=== PATIENT | female | born 1985 | race Caucasian/White ===

== ENCOUNTER → 2020-03-30 10:14 | Outpatient (CLI) | payer BC, SELFPAY ==
[2020-03-30 12:50] LABS: Appearance Urine UA CLEAR; Bilirubin Urine UA NEGATIVE (NEGATIVE); Color Urine UA YELLOW; Glucose Urine UA NEGATIVE (Negative); Ketones Urine UA NEGATIVE (NEGATIVE); Leukocyte Esterase Urine UA NEGATIVE (NEGATIVE); Nitrite Urine UA NEGATIVE (Negative); Occult Blood Urine UA TRACE-LYSED (Negative); Protein Urine UA NEGATIVE (Negative); Urobilinogen Urine UA 0.2 E.U./dL (0.2)
[2020-03-30 12:51] LABS: Add Manual Diff / Slide Review NO; Basophils Absolute Auto 0 /uL (0-100); Basophils Percent Auto 0.4 % (0-2); Eosinophils Absolute Auto 100 /uL (0-450); Eosinophils Percent Auto 1.6 % (2-4); Hematocrit 35.3 % (36-46); Hemoglobin 12.3 g/dL (12.0-16.0); Lymphocytes Absolute Auto 1500 /uL (1100-4500); Lymphocytes Percent Auto 20.4 % (25-40); Mean Corpuscular Hemoglobin 30.7 PG (26-34); Mean Corpuscular Volume 87.9 fL (80-100); Monocytes Absolute Auto 400 /uL (0-900); Monocytes Percent Auto 5.5 % (3-14); Neutrophils Absolute Auto 5300 /uL (1500-7000); Neutrophils Percent Auto 72.1 % (50-75); Platelet Count 287 X10^3/uL (150-400); Red Blood Cell Count 4.02 X10^6/uL (4.0-5.2); Red Cell Distribution Width 14.1 % (11.6-14.8); White Blood Cell Count 7.3 X10^3/uL (4.5-11.0)
[2020-03-30 13:40] LABS: GTT (PREG) 1 Hour PP 50gm Dose 109 mg/dL (76-139)
[2020-03-31 15:34] LABS: RPR Screen Non Reactive (Non Reactive)
[2020-03-31 15:36] LABS: Varicella IgG Antibody 594 index (Immune >165)
[2020-04-01 16:02] LABS: Hepatitis B Surface Antigen NEGATIVE s/c (NEGATIVE); Rubella Antibody IgG 93.5 IU/mL (>15)
[2020-04-01 16:17] LABS: HIV 1 & 2 Ab/Ag 4th Gen Combo NEGATIVE (NEGATIVE); Hep C Virus Ab w/Reflex Quant NEGATIVE s/c (NEGATIVE)
== END ==
PROVIDERS: PCP Physician Assistant Medical; Referring Provider Family Medicine; Visit Provider Family Medicine
DX: Z34.01 Encounter for supervision of normal first pregnancy, first trimester (principal); E03.9 Hypothyroidism, unspecified; E66.9 Obesity, unspecified; Z83.3 Family history of diabetes mellitus; Z3A.10 10 weeks gestation of pregnancy
CPT/HCPCS: 80055; 81003; 82950; 84443; 86787; 86803; 86850; 86900; 86901; 87086; 87389

== ENCOUNTER → 2020-04-27 10:03 | Outpatient (CLI) | payer BC, SELFPAY ==
[2020-04-27 11:18] LABS: Thyroid Stimulating Hormone 5.56 uIU/mL (0.47-4.68)
[2020-04-29 20:08] LABS: Calc Gestational Age Ultrasound (.); Estriol, Free 1.75 ng/mL (.); Inhibin A, Dimeric 215.61 pg/mL (.); Inhibin A, MoM See interpretation. (.); Maternal Ethnicity Caucasian (.); Maternal Weight 230 lbs (.); Number of Fetuses No (.); OSBR Risk 1 IN 10000 (.); Results Report (.); Test Results See interpretation. (.); hCG, MoM See interpretation. (.); hCG, Serum 31481 mIU/mL (.)
== END ==
PROVIDERS: PCP Physician Assistant Medical; Referring Provider Family Medicine; Visit Provider Family Medicine
DX: Z34.90 Encounter for supervision of normal pregnancy, unspecified, unspecified trimester (principal); E03.9 Hypothyroidism, unspecified; Z3A.18 18 weeks gestation of pregnancy
CPT/HCPCS: 36415; 82105; 82677; 84443; 84702; 86336

== ENCOUNTER → 2020-05-25 10:39 | Outpatient (CLI) | payer BC, SELFPAY ==
--- NOTE | 2020-05-25 10:41 | DI.US.S_ITS ---
PROCEDURE: US OB >= 14 WEEKS FETUS INDICATIONS: ANATOMY SCAN OUTSIDE/PRIOR DATING DATA: Last menstrual period (LMP): 12/23/2019 LMP-based estimated date of delivery (AVELINA): 09/28/2020 First dating scan (date and location): 05/25/2020 Estimated date of delivery (AVELINA) from first dating scan: 09/28/2020 TECHNIQUE: Real-time scanning was performed of the fetus, with image documentation and biometric measurements. Endovaginal scanning: Not performed. COMPARISON: None. FINDINGS: General: A single living intrauterine gestation is present. Presentation: Vertex. Placenta: Placental position is posterior, without previa. Amniotic fluid index: 11.5 cm, normal range is 5-24 cm. heart rate: 153 beats per minute. Maternal cervical canal: 4.1 cm long. Normal lower limit is 2.5 cm. biometrics: Biparietal diameter: 5.28 cm, 22 weeks 0 days. Head circumference: 19.45 cm, 21 weeks 5 days Abdominal circumference: 16.82 cm, 21 weeks 6 days Femur length: 3.90 cm, 22 weeks 4 days Estimated gestational age from initial scan: not applicable. Composite gestational age from present scan: 22 weeks 0 days Estimated weight and percentile: 475 grams, 48th percentile. Measurement variability for biometric dating: +/- 7 days from 14 weeks to 15 weeks 6 days gestation, +/- 10 days from 16 weeks to 21 weeks 6 days gestation, +/- 2 weeks from 22 weeks to 27 weeks 6 days gestation, +/- 3 weeks for 28 weeks gestation or later. weight reference: 4500 g or EFW >90/95% is considered macrosomia or large for gestational age. EFW <10% is small for gestational age. EFW 5% or less is considered intra-uterine growth restriction. Anatomic survey: Neuro: Ventricles are non-dilated at less than 10 mm. Cisterna magna is normal at 3-11 mm. Cerebellum is normal in size and morphology. Nuchal skin fold: Normal at less than 6 mm between 14-21 weeks gestational age. Face: Nose and lips, facial profile are normal. Spine: No evidence for spina bifida. Heart: 4-chambered heart is present, with normal ventricular outflow tracts. Diaphragm: Diaphragm is intact. Stomach: Left-sided stomach is present. Kidneys: No hydronephrosis. Normal is less than 5 mm in 2nd trimester, less than 7 mm in 3rd trimester. Cord: 3-vessel cord has orthotopic insertion. Bladder: Normal in size. Extremities: All 4 extremities identified. IMPRESSION: 1. Spann living intrauterine at 22 weeks 0 days based on today's ultrasound. 2. Normal placenta and amniotic fluid. 3. Normal and complete anatomic survey. Dictated by: Rohan Kauffman M.D. on 05/25/2020 at 14:14 Approved by: Rohan Kauffman M.D. on 05/25/2020 at 14:22
== END ==
PROVIDERS: PCP Physician Assistant Medical; Referring Provider Family Medicine; Visit Provider Family Medicine
DX: Z34.92 Encounter for supervision of normal pregnancy, unspecified, second trimester (principal); Z3A.22 22 weeks gestation of pregnancy
CPT/HCPCS: 76811

== ENCOUNTER → 2020-06-16 14:58 | Outpatient (CLI) | payer BC, SELFPAY ==
[2020-06-16 17:30] LABS: Thyroid Stimulating Hormone 2.28 uIU/mL (0.47-4.68)
== END ==
PROVIDERS: PCP Physician Assistant Medical; Referring Provider Family Medicine; Visit Provider Family Medicine
DX: E03.9 Hypothyroidism, unspecified (principal)
CPT/HCPCS: 36415; 84443

== ENCOUNTER → 2020-07-06 10:20 | Outpatient (CLI) | payer BC, SELFPAY ==
[2020-07-06 12:33] LABS: Add Manual Diff / Slide Review NO; Basophils Absolute Auto 0 /uL (0-100); Basophils Percent Auto 0.4 % (0-2); Eosinophils Absolute Auto 100 /uL (0-450); Eosinophils Percent Auto 1.7 % (2-4); Hematocrit 32.7 % (36-46); Hemoglobin 11.1 g/dL (12.0-16.0); Lymphocytes Absolute Auto 1600 /uL (1100-4500); Lymphocytes Percent Auto 19.1 % (25-40); Mean Corpuscular HGB Conc 33.9 % (30-36); Mean Corpuscular Volume 88.5 fL (80-100); Monocytes Absolute Auto 500 /uL (0-900); Monocytes Percent Auto 6.4 % (3-14); Neutrophils Absolute Auto 6200 /uL (1500-7000); Neutrophils Percent Auto 72.4 % (50-75); Platelet Count 316 X10^3/uL (150-400); Red Blood Cell Count 3.69 X10^6/uL (4.0-5.2); Red Cell Distribution Width 12.9 % (11.6-14.8); White Blood Cell Count 8.5 X10^3/uL (4.5-11.0)
[2020-07-06 12:35] LABS: GTT (PREG) 1 Hour PP 50gm Dose 110 mg/dL (76-139)
== END ==
PROVIDERS: PCP Physician Assistant Medical; Referring Provider Family Medicine; Visit Provider Family Medicine
DX: Z34.90 Encounter for supervision of normal pregnancy, unspecified, unspecified trimester (principal); Z3A.26 26 weeks gestation of pregnancy
CPT/HCPCS: 36415; 82950; 85025; 86850

== ENCOUNTER → 2020-08-31 09:48 | Outpatient (CLI) | payer BC, SELFPAY ==
[2020-09-01 11:58] LABS: Strep Grp B PCR POS for Grp B Strep
== END ==
PROVIDERS: PCP Family Medicine; Visit Provider Family Medicine
DX: Z34.90 Encounter for supervision of normal pregnancy, unspecified, unspecified trimester (principal); Z3A.36 36 weeks gestation of pregnancy
CPT/HCPCS: 87186; 87653

== ENCOUNTER → 2020-09-01 10:06 | Outpatient (CLI) | payer BC, SELFPAY ==
[2020-09-01 12:03] LABS: Thyroid Stimulating Hormone 0.372 uIU/mL (0.47-4.68)
== END ==
PROVIDERS: PCP Family Medicine; Referring Provider Family Medicine; Visit Provider Family Medicine
DX: E03.9 Hypothyroidism, unspecified (principal)
CPT/HCPCS: 36415; 84443

== ENCOUNTER 2020-09-23 18:40 | Inpatient (IN) | payer BC, SELFPAY ==
[2020-09-23 19:56] LABS: COVID19 -Nasal RAPID Negative (Negative)
[2020-09-23 20:54] LABS: Add Manual Diff / Slide Review NO; Basophils Absolute Auto 100 /uL (0-100); Basophils Percent Auto 0.7 % (0-2); Eosinophils Absolute Auto 100 /uL (0-450); Eosinophils Percent Auto 0.9 % (2-4); Hematocrit 34.6 % (36-46); Hemoglobin 11.6 g/dL (12.0-16.0); Lymphocytes Absolute Auto 2400 /uL (1100-4500); Lymphocytes Percent Auto 21.1 % (25-40); Mean Corpuscular HGB Conc 33.5 % (30-36); Mean Corpuscular Hemoglobin 28.9 PG (26-34); Mean Corpuscular Volume 86.4 fL (80-100); Monocytes Absolute Auto 600 /uL (0-900); Monocytes Percent Auto 5.5 % (3-14); Neutrophils Absolute Auto 8100 /uL (1500-7000); Neutrophils Percent Auto 71.8 % (50-75); Platelet Count 298 X10^3/uL (150-400); Red Cell Distribution Width 14.5 % (11.6-14.8); White Blood Cell Count 11.3 X10^3/uL (4.5-11.0)
[2020-09-23] MEDS: LACTATED RINGERS 1,000 ML 100 ML IV (21:05)
[2020-09-23] MEDS: VANCOMYCIN 2,000 MG/400 ML PIGGYBACK 200 MG IV (21:05)
[2020-09-23 21:30] VITALS: BP 126/79
[2020-09-23] MEDS: diphenhydrAMINE 50 MG/ML VIAL 25 MG IV (22:45)
[2020-09-24] MEDS: CALCIUM CARBONATE 500 MG TAB 1000 MG PO (00:24)
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
--- NOTE | 2020-09-24 07:17 | PM.OBPRVD ---
Labor & Delivery Delivery date: 09/24/20 Intrapartal events: None Estimated blood loss (mL): 200 Anesthesia type: Other (Nitrous) Complications: None Narrative: PROCEDURE: at 39w2d presented with PROM and was admitted to Labor and Delivery. The patient progressed through the 1st stage over 2 hours. Pain was controlled with Nitrous oxide. The patient progressed through the 2nd stage over [id number] and delivered a viable male infant with APGARs 8/9 at 6:55 via without complications. There was no nuchal cord. The cord was clamped and cut after it stopped pulsating. The perineum and vagina were inspected with very small 1st degree perineal laceration that was hemostatic and not repaired. PREPROCEDURE DIAGNOSIS: Intrauterine at 39w2d GBS positive Rh negative, s/p Rhogam Hypothyroidism POSTPROCEDURE DIAGNOSIS: Intrauterine at 39w3d, delivered Same as preprocedure PROCEDURE: Spontaneous vaginal delivery INDUCTION: No LABOR AUGMENTATION: None ROM APPEARANCE: Clear BABY A DELIVERY TIME: 6:55 BABY A OUTCOME: Viable BABY A SEX: Male BABY A WEIGHT: 7lb2.2oz BABY A PRESENTATION: Vertex BABY A POSITION: ERIN BABY A NUCHAL CORD: None BABY A # CORD VESSELS: 3 BABY A CORD GASES OBTAINED: No PLACENTA DELIVERY TIME: 7:03 PLACENTAL DELIVERY TYPE: Spontaneous PLACENTA APPEARANCE: Intact Baby 1: Infant gender: Male score (1 min): 8 score (5 min): 9 Plan for aftercare: Normal care Continue Levothyroxine Cord blood sent due to Rh status
[2020-09-24] MEDS: IBUPROFEN 600 MG TABLET PO ×2 (09:03→15:59)
[2020-09-24] MEDS: LEVOTHYROXINE 125 MCG TABLET PO (09:04)
[2020-09-24] MEDS: DERMOPLAST SPRAY 20% 60 ML 1 SPRAY TOP (09:04)
[2020-09-24] MEDS: LANOLIN OINT 7 GM 1 APPLIC TOP (15:59)
[2020-09-25] MEDS: LEVOTHYROXINE 125 MCG TABLET PO (07:43)
[2020-09-25] MEDS: IBUPROFEN 600 MG TABLET PO (07:43)
[2020-09-25] MEDS: DOCUSATE 100 MG CAPSULE PO (07:43)
[2020-09-25] MEDS: PRENATAL VIT,CALC/IRON/FOLIC 1 TABLET 1 TAB PO (07:43)
--- NOTE | 2020-09-25 09:04 | PM.OBDS.1 ---
Discharge Providers Provider Date of admission: 09/23/20 18:40 Discharge Date: 09/25/20 Primary care physician: Mary Morales MD Consults: 09/25/20 07:22 Consult to Hop Separator Routine Comment: Discharge provider: DO Leslee Walker Hospital Course Date Patient Seen: 09/25/20 Time Patient Seen: 09:00 Procedures: Spontaneous vaginal delivery Hospital Course: Patient is a 35-year-old G2 now P1 after uncomplicated spontaneous vaginal delivery of a vigorous male on 09/24/20. course uncomplicated as well. Patient was ambulating, voiding and passing flatus. Vaginal bleeding was reportedly light. Pain controlled with ibuprofen only. Breast-feeding going well after frenotomy in infant. Advised patient to call for fevers, severe pain or bleeding through more than a pad an hour. She will follow-up with Dr. Morales in 6 weeks. Peripartum Data Infant Delivery Method: Natural Vaginal complications: none [place] 1: Gender: Male Disposition of : home Discharge Diagnosis (1) Spontaneous vaginal delivery: Status: Acute (2) 39 weeks gestation of : Status: Acute Status at Discharge Cognitive/behavioral status at discharge: at baseline, oriented Functional status at discharge: independent ambulation Overall status at discharge: patient is progressing back to baseline Time Spent with Patient Time attestation: Total time spent providing and/or coordinating discharge services: Time spent: Less than 30 minutes Objective Labs Result Diagrams: 09/23/20 20:40 Labs: Laboratory Results - last 24 hr 09/25/20 06:55 Maternal Bleed Negative Exam Vital Signs (past 8 hours): Temperature 98.2? blood pressure 129/85 heart rate 95 respirations 20 Narrative Exam Narrative: General: Awake and alert, no acute distress. HEENT: NCAT, EOMI, moist oral mucosa CV: Regular rate and rhythm, no murmurs, rubs or gallops Lungs: CTAB, no wheezes, rales, or rhonchi Abdomen: Soft, nontender; bowel tones active; uterus firm 1 cm below umbilicus Extremities: Warm, no edema Discharge Plan Discharge Plan Patient Disposition: Home Discharge orders & Medications Prescriptions: New docusate sodium [DOK] 100 mg Capsule 100 mg PO DAILY Qty: 30 RF: 0 ibuprofen 600 mg Tablet 600 mg PO Q6HR PRN (Reason: Pain, Mild (1-3)) Qty: 30 RF: 0 Ayh-W-Eyxonj Cream 1 applic topical PRN PRN (Reason: Tenderness) Qty: 1 RF: 0 Continued levothyroxine 125 mcg capsule 125 mcg PO DAILY Qty: 30 RF: 1 prenat.vits,tammie,hgw-vxed-rkgwk Tablet 1 tab PO DAILY RF: 0 Follow up/Referrals: Mary Morales MD [Primary Care Provider] - (please f/u w/ Dr. Morales on @ 1:30pm for your appt. appt: @ 12pm ([facility])) Visit Report/Discharge Packet Stand Alone Forms: Discharge: Care Visit Report Forms: Patient Portal/API, Stroke Signs & Symptoms Discharge Data Primary Care Provider: Mary Morales
[2020-09-25] MEDS: RHO(D) IMMUNE GLOBULIN 1,500 UNIT SYRINGE 1500 UNIT IM (11:06)
[2020-09-25 11:10] VITALS: BP 126/79; PULSE 95; RESP 20; TEMP 36.8
== END 2020-09-25 11:11 | disposition home or self-care (01) | DRG 807 ==
PROVIDERS: Admitting Provider Family Medicine; PCP Family Medicine; Referring Provider Specialist; Visit Provider Family Medicine
DX: O42.02 Full-term premature rupture of membranes, onset of labor within 24 hours of rupture (principal); Z37.0 Single live birth; Z3A.39 39 weeks gestation of pregnancy; O99.824 Streptococcus B carrier state complicating childbirth; O99.284 Endocrine, nutritional and metabolic diseases complicating childbirth; E03.9 Hypothyroidism, unspecified; O26.893 Other specified pregnancy related conditions, third trimester; Z67.21 Type B blood, Rh negative; Z88.0 Allergy status to penicillin; Z11.59 Encounter for screening for other viral diseases
CPT/HCPCS: 36415; 59050; 59400; 84112; 85025; 85461; 86850; 86900; 86901; 87635; G0379; J1200; J2790

== ENCOUNTER → 2020-11-12 07:57 | Outpatient (CLI) | payer BC, SELFPAY ==
--- NOTE | 2020-11-12 07:58 | DI.US.S_ITS ---
PROCEDURE: US ABDOMEN LIMITED INDICATIONS: RUQ PAIN TECHNIQUE: Real-time scanning was performed of the abdominal and retroperitoneal organs, with image documentation. COMPARISON: None. FINDINGS: Liver: Liver is normal in size and homogeneous in echotexture. Gallbladder: Numerous stones are seen in dependent portion of gallbladder lumen. No gallbladder wall thickening. No definite pericholecystic fluid. Positive sonographic Srivastava sign was noted during the study. Biliary ducts: Intrahepatic bile ducts are non-dilated. Extrahepatic bile duct caliber measures 4.6 mm. Normal is 6-7 mm or less in diameter, or 10 mm or less post-cholecystectomy. Pancreas: Visualized portions of the pancreas are sonographically normal. IMPRESSION: 1. Cholelithiasis with positive sonographic Srivastava sign during the study concerning for early acute cholecystitis. No significant gallbladder wall thickening or pericholecystic fluid is seen on the current study. 2. No biliary ductal dilatation. Dictated by: Shade Patterson M.D. on 11/12/2020 at 9:41 Approved by: Shade Patterson M.D. on 11/12/2020 at 9:42
[2020-11-12 10:07] LABS: Thyroid Stimulating Hormone 3.36 uIU/mL (0.47-4.68)
== END ==
PROVIDERS: PCP Family Medicine; Referring Provider Family Medicine; Visit Provider Family Medicine
DX: R10.11 Right upper quadrant pain (principal); E03.9 Hypothyroidism, unspecified; K80.20 Calculus of gallbladder without cholecystitis without obstruction
CPT/HCPCS: 36415; 76705; 84443

== ENCOUNTER → 2020-12-06 09:31 | Outpatient (CLI) | payer BC, SELFPAY ==
[2020-12-06 11:52] LABS: COVID19 -Nasal RAPID Negative (Negative)
== END ==
PROVIDERS: PCP Family Medicine; Visit Provider Surgery
DX: Z01.812 Encounter for preprocedural laboratory examination (principal); Z20.822 Contact with and (suspected) exposure to COVID-19
CPT/HCPCS: 87635; C9803

== ENCOUNTER 2020-12-07 08:06 | Day surgery (SDC) | payer BC, SELFPAY ==
[2020-12-07] VITALS (12 sets, daily range): BP systolic 102–124; BP diastolic 57–89; PULSE 72–99; RESP 12–18; TEMP 36.2–37.1; O2SAT 95–100; BMI 34.3
--- NOTE | 2020-12-07 | PATH_ITS ---
[facility] Accession Number: [id number] . 01 Material submitted: . gallbladder - GALLBLADDER . 01 Clinical history: . LAP GALEN . 02 Diagnosis: Gallbladder, Cholecystectomy: Chronic cholecystitis with cholelithiasis and cholesterolosis. Negative for dysplasia and malignancy. MRV 12/09/2020 1021 Local . 02 Electronically signed: . Oralia Simons MD, Pathologist NPI- [id number] . 01 Gross description: . The specimen is received in formalin, labeled gallbladder and consists of a 7.0 x 3.0 x 2.6 cm intact gallbladder with a 0.2 cm in diameter cystic duct. The serosa is mckenna-pink to mckenna-green and smooth with focal fibrinous adhesions. Opening reveals green viscous bile with multiple mckenna-green bosselated choleliths ranging from 0.1 to 0.6 cm and measuring 5.0 x 2.0 x 1.5 cm in aggregate. The mucosa is mckenna-green and velvety with cholesterolosis, and the wall thickness measures 0.2 cm. Hand Tennis Ball Coverer sections are submitted to include the en face cystic duct margin (blue) in cassette A1. ([id number]) /MRV 12/08/2020 0947 Local . 02 Pathologist provided ICD-10: K80.50 . 02 CPT . 858600 Performed at: 01 [facility] [address], [place], [place] [id number] MD Seven Haque MD Phone: [phone] Performed at: 02 [facility] [address] [place], [place] [id number] MD Oralia Simons MD Phone: [phone]
--- NOTE | 2020-12-07 08:18 | PM.PREOP ---
Pre-operative Note Interval Note History & Physical reviewed/Exam performed by Physician: Yes Changes to H&P: No
[2020-12-07] MEDS: LACTATED RINGERS 1,000 ML 100 ML IV (08:55)
[2020-12-07] MEDS: CLINDAMYCIN 900 MG/50 ML PIGGYBACK 50 MG IV (09:01)
--- NOTE | 2020-12-07 09:22 | SUR.OPER ---
Supine on padded OR bed, head on pillow, safety belt at thigh, left arm padded and tucked at side. Right arm secured on padded arm oard <90 degrees abduction. Legs uncrossed. Padded footboard in place. Tape over blanket to secure lower legs.
[2020-12-07] MEDS: BUPIVACAINE 0.25% (PF) VIAL 30 ML INJ (09:31)
--- NOTE | 2020-12-07 10:46 | PM.OP.1 ---
Operative Date/Time/Diagnoses Date of procedure: 12/07/20 Time of procedure: 10:47 Pre-op diagnosis: cholecystitis Post-op diagnosis: same Procedure & Clinicians Procedure: laparoscopic cholecystectomy Same procedure as scheduled: Yes Indications: 35F recently post with biliary colic here for elective cholecystectomy Surgeon: Roverto Parish Anesthesia Type: General Operative Notes Findings: Chronic cholecystitis Specimen(s): other (gallbladder) Estimated Blood Loss (mL): 50 Procedure in detail: The patient was placed supine on the table and bilateral lower extremity compression devices were applied. Anesthesia was induced they were intubated with an endotracheal tube and received 2g of Ancef. A time-out was performed. They were prepped and draped in sterile fashion. An infraumbilical incision was made, the umbilical stalk was elevated and the fascia was sharply incised entering the abdomen atraumatically. A blunt tip 12mm balloon trocar was then inserted, pneumoperitoneum was established and inspection of the abdomen demonstrated no evidence of injury. They were placed head up and right side up and then a 11 mm port was placed high in the epigastrium and two 5mm in the right upper quadrant. The omentum was densely adherent to the gallbladderand was carefully taken down consistent with chronic cholecystitis. The gallbladder was grasped by the fundus and retracted over the liver and retracted laterally by the infundibulum. Using electrocautery the lateral plane between the gallbladder and the liver was opened towards the fundus. The gallbladder was then retracted laterally and the medial plane was developed in the same manner. With the gallbladder mobilized the bottom of the cystic plate was visualized. The hepatocystic triangle was meticulosly skeletonized using hook electrocautery of all fat and fibrous tissue from both the front and the back. Only two structures were then clearly seen entering the gallbladder the cystic duct and the cystic artery. With the critical view of safety fully established the cystic duct was clipped twice proximally and once distally using the 10 mm clip applied under direct visualization and then sharply divided. The cystic artery was divided in the same fashion. The gallbladder was removed from the liver bed using electro cautery. The liver bed was then inspected for hemostasis and this was achieved. The abdomen was irrigated with sterile saline and inspection was made that showed the clips in good position. The specimen was removed using Endo-Catch. The abdomen was desufflated. The umbilical fascia was closed with 0 Vicryl in a [id number] fashion under direct visualization. Skin incisions were irrigated and closed with 4-0 Monocryl. 30 ml of 0.25% bupivacaine was infiltrated into the subcutaneous tissue of the incisions. The wounds were sealed with Dermabond. Patient emerged from anesthesia was extubated and transferred to recovery in stable condition. The sponge and instrument count at the end of the operation was correct. Complications: none Post-operative Condition: stable Disposition: same day surgery
[2020-12-07] MEDS: ONDANSETRON 4 MG/2 ML INJ IV (10:48)
[2020-12-07] MEDS: OXYCODONE/ACETAMINOPHEN 5/325 TABLET 1 TAB PO ×2 (10:53→11:19)
[2020-12-07] MEDS: HYDROMORPHONE 2 MG INJ IV (10:57)
[2020-12-07] MEDS: METOCLOPRAMIDE 10 MG/2 ML INJ IV (11:06)
--- NOTE | 2020-12-07 11:37 | SUR.PHASEII ---
Pt's Dad called, updated him with pt's condition. Pt still nauseated- comes and goes, IV fluids resumed, call light at bedside.
[2020-12-07] MEDS: LACTATED RINGERS 1,000 ML 42 ML IV (11:45)
--- NOTE | 2020-12-07 13:27 | SUR.PHASEII ---
Late entry: Pt stated she was ready to go. Assisted pt to dress. Abdomen with puncture sites c/d/i. Pt attempted to stand up, became nauseated and vomited approximately 100mls yellow/green liquid. Pt still wanting to go home. Pt escorted from unit let in stable condition.
== END 2020-12-07 12:30 | disposition home or self-care (01) ==
PROVIDERS: PCP Family Medicine; Referring Provider Family Medicine; Visit Provider Surgery
PROC: 0FT44ZZ Resection of Gallbladder, Percutaneous Endoscopic Approach (ICD-10-PCS; CPT 47562; principal; 2020-12-07 09:15)
DX: K80.10 Calculus of gallbladder with chronic cholecystitis without obstruction (principal); E03.9 Hypothyroidism, unspecified; J45.20 Mild intermittent asthma, uncomplicated; E66.9 Obesity, unspecified; Z68.35 Body mass index [BMI] 35.0-35.9, adult
CPT/HCPCS: 47562; 81025; J1100; J1170; J1885; J2250; J2405; J2704; J2765; J3010

== ENCOUNTER → 2020-12-21 13:02 | Outpatient (ROUT) | payer BC, SELFPAY ==
[2020-12-21 14:44] LABS: Urine N gonorrhoeae NOT DETECTED
[2020-12-21 14:46] LABS: Urine Chlamydia NOT DETECTED
== END ==
PROVIDERS: PCP Family Medicine; Visit Provider Family Medicine
DX: Z11.3 Encounter for screening for infections with a predominantly sexual mode of transmission (principal)
CPT/HCPCS: 87491; 87591

== ENCOUNTER → 2021-12-13 10:11 | Outpatient (CLI) | payer BC, SELFPAY ==
[2021-12-13 12:18] LABS: Add Manual Diff / Slide Review NO; Basophils Absolute Auto 100 /uL (0-100); Basophils Percent Auto 0.9 % (0-2); Eosinophils Absolute Auto 100 /uL (0-450); Hematocrit 38.4 % (36-46); Hemoglobin 13.1 g/dL (12.0-16.0); Lymphocytes Absolute Auto 1900 /uL (1100-4500); Lymphocytes Percent Auto 26.4 % (25-40); Mean Corpuscular HGB Conc 34.1 % (30-36); Mean Corpuscular Hemoglobin 29.7 PG (26-34); Monocytes Absolute Auto 500 /uL (0-900); Monocytes Percent Auto 6.4 % (3-14); Neutrophils Absolute Auto 4500 /uL (1500-7000); Neutrophils Percent Auto 64.3 % (50-75); Platelet Count 299 X10^3/uL (150-400); Red Blood Cell Count 4.42 X10^6/uL (4.0-5.2); Red Cell Distribution Width 13.6 % (11.6-14.8); White Blood Cell Count 7.1 X10^3/uL (4.5-11.0)
[2021-12-13 12:37] LABS: Erythrocyte Sedimentation Rate 17 MM/HR (0-20)
[2021-12-13 12:46] LABS: Hemoglobin A1C% w Est Avg Glu 5.4 % (4.0-6.0)
[2021-12-13 13:09] LABS: Alanine Aminotransferase 9 IU/L (<35); Albumin 4.6 g/dL (3.5-5.0); Albumin Globulin Ratio 1.6 (1.0-2.8); Alkaline Phosphatase 68 U/L (38-126); Aspartate Aminotransferase 17 IU/L (14-36); BUN Creatinine Ratio 15.9 (6-22); Bilirubin Total 0.4 mg/dL (0.2-1.3); Blood Urea Nitrogen 13 mg/dL (7-17); Calcium 9.3 mg/dL (8.4-10.2); Carbon Dioxide 30 mmol/L (22-32); Chloride 104 mmol/L (98-107); Estimated Glomerular Filt Rate > 60.0 mL/min (>60); Globulin 2.8 g/dL (1.7-4.1); Glucose 83 mg/dL (70-100); HEMOLYSIS < 15 (0-50); Potassium 4.4 mmol/L (3.4-5.1); Sodium 140 mmol/L (137-145); Total Protein 7.4 g/dL (6.3-8.2)
[2021-12-13 13:16] LABS: High Sensitivity CRP - Cardiac 5.3 mg/L (1.0-3.0)
[2021-12-13 13:52] LABS: Thyroid Stimulating Hormone 35.8 uIU/mL (0.47-4.68)
[2021-12-19 13:49] LABS: Free T3, Triiodothyronine Free 2.29 pg/mL (2.77-5.27); Free T4, Direct Thyroxine 1.24 ng/dL (0.78-2.19)
== END ==
PROVIDERS: PCP Family Medicine; Referring Provider Ophthalmology; Visit Provider Ophthalmology
DX: H50.21 Vertical strabismus, right eye (principal); H53.131 Sudden visual loss, right eye
CPT/HCPCS: 36415; 80053; 83036; 84439; 84443; 84481; 85025; 85651; 86140

== ENCOUNTER → 2021-12-20 09:07 | Outpatient (CLI) | payer BC, SELFPAY ==
--- NOTE | 2021-12-20 | DI.MRI.S_ITS ---
PROCEDURE: MR BRAIN (IAC) WWO CON INDICATIONS: Sudden visual loss, right eye TECHNIQUE: Noncontrast sagittal T1 spin echo, axial FLAIR, axial gradient echo, axial diffusion and ADC through the brain. Axial thin-slice 3D CISS, coronal TruFISP, axial T1 spin echo with fat saturation through the internal auditory canals. After the administration of contrast, thin slice axial and coronal T1 spin echo with fat saturation through the internal auditory canals, and axial T1 spin echo with fat saturation through the brain. COMPARISON: None. FINDINGS: Image quality: Excellent. Orbita: Asymmetrically increased T2 signal and enhancement of the right optic nerve canalicular and intraorbital segments. Orbital structures are otherwise normal in appearance. CSF spaces: Ventricles are normal in size and shape. No extra-axial fluid collections. Basal cisterns are patent. Brain: Multiple foci of increased T2/FLAIR signal in the subcortical, deep, and periventricular white matter both cerebral hemispheres, including multiple periventricular signal abnormalities which demonstrate perivenular orientation perpendicular to the corpus callosum. A few lesions involve the callososeptal interface. There may be a focus of increased T2 signal in the right superior cerebellar peduncle also. Otherwise normal brain parenchymal signal intensity. Skull and face: Calvarial marrow signal is normal. Orbits appear normal. Sinuses: Sinuses and mastoids are clear. IMPRESSION: Multiple foci of increased T2/FLAIR signal intensity within the cerebral hemispheric white matter and a potential focus in the right superior cerebellar peduncle as well . Findings are suspicious for demyelinating disorder such as multiple sclerosis or Devic disease. Asymmetrically increased T2 signal and enhancement of the right optic nerve intraorbital and canalicular segments. Findings are consistent with demyelinating disorder Dictated by: Artem Macario M.D. on 12/20/2021 at 11:31 Approved by: Artem Macario M.D. on 12/20/2021 at 11:37
== END ==
PROVIDERS: PCP Family Medicine; Referring Provider Ophthalmology; Visit Provider Ophthalmology
DX: H53.131 Sudden visual loss, right eye (principal); H53.2 Diplopia; H50.89 Other specified strabismus
CPT/HCPCS: 70553

== ENCOUNTER → 2022-02-21 10:27 | Outpatient (CLI) | payer BC, SELFPAY ==
[2022-02-21 13:32] LABS: Thyroid Stimulating Hormone 3.04 uIU/mL (0.47-4.68)
== END ==
PROVIDERS: PCP Family Medicine; Referring Provider Chiropractor; Visit Provider Chiropractor
DX: E03.9 Hypothyroidism, unspecified (principal)
CPT/HCPCS: 36415; 84443

== ENCOUNTER → 2023-05-01 09:37 | Outpatient (CLI) | payer BC, SELFPAY ==
--- NOTE | 2023-05-01 09:39 | DI.RAD.S_ITS ---
PROCEDURE: XR FOOT LT MIN 3V INDICATIONS: left heel pain TECHNIQUE: 3 views of the foot were acquired. COMPARISON: None. FINDINGS: Bones: No fractures or dislocations. No suspicious bony lesions. Soft tissues: No tibiotalar joint effusion. IMPRESSION: No acute osseous abnormality. If symptoms persist, follow-up radiographs and/or CT or MRI may be helpful for further evaluation. Dictated by: Carlos Plaza M.D. on 05/01/2023 at 18:23 Approved by: Carlos Plaza M.D. on 05/01/2023 at 18:25
[2023-05-01 10:55] LABS: Cholesterol 147 mg/dL (140-199); HDL Cholesterol 54 mg/dL (40-60); LDL Cholesterol Calculated 81 mg/dL (<100); Triglycerides 61 mg/dL (35-150)
[2023-05-01 11:24] LABS: TSH w/ Reflex to FT4 3.41 uIU/mL (0.47-4.68)
[2023-05-02 06:05] LABS: x Labcorp Estim. Avg Glu (eAG) 120 mg/dL (.); x Labcorp Hemoglobin A1c 5.8 % (4.8-5.6)
== END ==
PROVIDERS: PCP Family Medicine; Referring Provider Family Medicine; Visit Provider Family Medicine
DX: M79.672 Pain in left foot (principal); E03.9 Hypothyroidism, unspecified; E66.9 Obesity, unspecified
CPT/HCPCS: 36415; 73630; 80061; 83036; 84443

== ENCOUNTER → 2024-12-12 09:07 | Outpatient (CLI) | payer BC, SELFPAY ==
--- NOTE | 2024-12-12 09:09 | DI.RAD.S_ITS ---
PROCEDURE: XR CHEST 2V INDICATIONS: SOB, cough TECHNIQUE: 2 views of the chest were acquired. COMPARISON: None. FINDINGS: Surgical changes and devices: None. Lungs and pleura: Bilateral perihilar and infrahilar interstitial thickening. There is a small alveolar opacity in the left mid upper lung. No dense consolidations or pleural effusions. Mediastinum: Mediastinal contours are normal. Heart size is normal. Bones and chest wall: No suspicious bony abnormalities. Soft tissues appear unremarkable. IMPRESSION: Bilateral perihilar interstitial thickening may indicate a viral pneumonitis, bronchiolitis, or other infectious/inflammatory process. Small left upper lung opacity may be a small focus of airspace disease. Recommend repeat chest x-ray following resolution of acute illness. Dictated by: Jadyn Torres M.D. on 12/12/2024 at 14:10 Approved by: Jadyn Torres M.D. on 12/12/2024 at 14:12
== END ==
PROVIDERS: PCP Family Medicine; Referring Provider Family Medicine; Visit Provider Family Medicine
DX: R06.02 Shortness of breath (principal)
CPT/HCPCS: 71046